=== PATIENT | female | born 1985 | race African-American/Black ===

== ENCOUNTER 2017-03-27 00:19 | Emergency (ER) | payer MEDICAID ==
[~2017-03-27] VITALS: Ht 154.9 cm; Wt 74.0 kg
[2017-03-27] MEDS ORDERED: TRAMADOL 50MG TABLET PO ONE (03:30)
[2017-03-27 03:39] LABS: BASOPHILS % 0.4 % (0.0-2.0); EOSINOPHILS % 3.8 % (0.0-5.0); HEMATOCRIT. 35.2 % (36.0-48.0); HEMOGLOBIN. 11.9 g/dL (12.0-16.0); LYMPHOCYTES % 41.2 % (20.0-50.0); MEAN CORPUSCULAR HEMOGLOBIN 30.6 pg (28.0-32.0); MEAN CORPUSCULAR VOLUME 90.3 fL (81.0-99.0); MONOCYTES % 7.5 % (2.0-8.0); NEUTROPHILS % 47.1 % (40.0-76.0); PLATELET 326 x1000/uL (130-400); RED CELL DISTRIBUTION WIDTH 13.6 % (11.6-14.6)
[2017-03-27 03:51] LABS: CARBON DIOXIDE 28 mEq/L (21-32); CHLORIDE 107 mEq/L (98-107)
[2017-03-27 03:54] LABS: HCG SCREEN NEGATIVE
[2017-03-27] MEDS ORDERED: ONDANSETRON HCL 4MG/2ML VIAL IV ONE (05:45)
[2017-03-27] MEDS ORDERED: MORPHINE SULFATE 4 MG/ML CPJ (NOT FOR IM USE) IV ONE (05:45)
[2017-03-27 06:44] VITALS: BP 122/64
[2017-03-27 08:00] LABS: CLARITY URINE CLEAR (CLEAR); COLOR URINE YELLOW (YELLOW); GLUCOSE URINE NEGATIVE (NEGATIVE); KETONES URINE TRACE (NEGATIVE); LEUKOCYTE ESTERASE URINE NEGATIVE (NEGATIVE); NITRITE URINE NEGATIVE (NEGATIVE); OCCULT BLOOD URINE NEGATIVE (NEGATIVE); PH URINE 6.5 (4.5-8.0); PROTEIN URINE NEGATIVE (NEGATIVE); SPECIFIC GRAVITY URINE 1.033 (1.005-1.030)
[2017-03-27] MEDS ORDERED: SODIUM CHLORIDE 0.9% 10ML VIAL ONE (10:56)
[2017-03-27] MEDS ORDERED: IOHEXOL-300 100 ML BOTTLE ONE (10:56)
== END 2017-03-27 06:54 | disposition home or self-care (01) ==
LOC: ER 00:19
DX: R19.00 Intra-abdominal and pelvic swelling, mass and lump, unspecified site (principal); R10.33 Periumbilical pain; Z98.890 Other specified postprocedural states
CPT/HCPCS: 36415; 74177; 80053; 81003; 84703; 85025; 96374; 96375; 99285; A4216; J2270; J2405; Q9967; Z7610

== ENCOUNTER 2017-06-11 06:51 | Emergency (ER) | payer MEDICAID ==
[~2017-06-11] VITALS: Ht 154.9 cm; Wt 74.0 kg
[2017-06-11] MEDS ORDERED: SODIUM CHLORIDE 0.9% 1,000 ML IV ONE (07:16)
[2017-06-11] MEDS ORDERED: MORPHINE SULFATE 4 MG/ML CPJ (NOT FOR IM USE) IV STA (07:16)
[2017-06-11] MEDS ORDERED: ONDANSETRON HCL 4MG/2ML VIAL IV STA (07:16)
[2017-06-11] MEDS ORDERED: DIATR MEGLU/DIATRIZOATE SOLN 30ML ONE (07:43)
[2017-06-11 07:49] LABS: BASOPHILS % 0.4 % (0.0-2.0); HEMATOCRIT. 36.2 % (36.0-48.0); HEMOGLOBIN. 12.3 g/dL (12.0-16.0); LYMPHOCYTES % 42.2 % (20.0-50.0); MEAN CORPUSCULAR VOLUME 91.5 fL (81.0-99.0); MEAN PLATELET VOLUME 7.8 fl (7.4-10.4); MONOCYTES % 8.9 % (2.0-8.0); NEUTROPHILS % 45.5 % (40.0-76.0); PLATELET 336 x1000/uL (130-400); RED BLOOD CELL COUNT 3.96 mill/uL (4.2-5.4); RED CELL DISTRIBUTION WIDTH 13.5 % (11.6-14.6)
[2017-06-11 08:04] LABS: GLUCOSE URINE NEGATIVE (NEGATIVE); KETONES URINE NEGATIVE (NEGATIVE); LEUKOCYTE ESTERASE URINE NEGATIVE (NEGATIVE); NITRITE URINE NEGATIVE (NEGATIVE); OCCULT BLOOD URINE 3+ (NEGATIVE); PROTEIN URINE NEGATIVE (NEGATIVE)
[2017-06-11 08:05] LABS: CARBON DIOXIDE 28 mEq/L (21-32); CHLORIDE 109 mEq/L (98-107)
[2017-06-11 08:05] LABS: CLARITY URINE CLEAR (CLEAR); COLOR URINE YELLOW (YELLOW)
[2017-06-11] MEDS ORDERED: IOHEXOL-300 100 ML BOTTLE ONE (09:47)
[2017-06-11] MEDS ORDERED: KETOROLAC 30MG/ML VIAL IV ONE (11:45)
[2017-06-11 12:01] VITALS: BP 124/84
== END 2017-06-11 12:02 | disposition home or self-care (01) ==
LOC: ER 07:34
DX: R19.09 Other intra-abdominal and pelvic swelling, mass and lump (principal); Z98.890 Other specified postprocedural states
CPT/HCPCS: 36415; 74177; 80053; 81001; 81025; 83690; 85025; 96361; 96374; 96375; 99285; J1885; J2270; J2405; J7030; Q9967; Z7610; Q9963

== ENCOUNTER 2018-05-28 21:41 | Emergency (ER) | payer MEDICAID ==
[~2018-05-28] VITALS: Ht 154.9 cm; Wt 73.0 kg
[2018-05-28] MEDS ORDERED: MORPHINE SULFATE 4 MG/ML CPJ (NOT FOR IM USE) IV STA (23:59)
[2018-05-28] MEDS ORDERED: SODIUM CHLORIDE 0.9% 1,000 ML IV ONE (23:59)
[2018-05-28] MEDS ORDERED: ONDANSETRON HCL 4MG/2ML INJ IV STA (23:59)
[2018-05-29 00:47] LABS: BASOPHILS % 0.4 % (0.0-2.0); EOSINOPHILS % 0.4 % (0.0-5.0); HEMATOCRIT. 37.4 % (36.0-48.0); HEMOGLOBIN. 12.5 g/dL (12.0-16.0); LYMPHOCYTES % 23.8 % (20.0-50.0); MEAN CORPUSCULAR HEMOGLOBIN 30.6 pg (28.0-32.0); MEAN CORPUSCULAR VOLUME 91.7 fL (81.0-99.0); MEAN PLATELET VOLUME 8.4 fl (7.4-10.4); MONOCYTES % 5.5 % (2.0-8.0); NEUTROPHILS % 69.9 % (40.0-76.0); PLATELET 330 x1000/uL (130-400); RED BLOOD CELL COUNT 4.07 mill/uL (4.2-5.4); RED CELL DISTRIBUTION WIDTH 13.3 % (11.6-14.6)
[2018-05-29 00:53] LABS: CHLORIDE 104 mEq/L (98-107)
[2018-05-29 00:55] LABS: CLARITY URINE CLEAR (CLEAR); COLOR URINE YELLOW (YELLOW); KETONES URINE NEGATIVE (NEGATIVE); LEUKOCYTE ESTERASE URINE NEGATIVE (NEGATIVE); NITRITE URINE NEGATIVE (NEGATIVE); OCCULT BLOOD URINE TRACE (NEGATIVE); PH URINE 6.5 (4.5-8.0); PROTEIN URINE NEGATIVE (NEGATIVE); UROBILINOGEN URINE 0.2 E.U./dL (0.2-1.0)
[2018-05-29] MEDS ORDERED: KETOROLAC 30MG/ML VIAL IV ONE (03:15)
[2018-05-29 04:33] VITALS: BP 121/73
== END 2018-05-29 04:54 | disposition home or self-care (01) ==
LOC: ER 21:41
DX: R10.9 Unspecified abdominal pain (principal); N94.6 Dysmenorrhea, unspecified; I63.9 Cerebral infarction, unspecified; Z98.890 Other specified postprocedural states
CPT/HCPCS: 36415; 74176; 80053; 81003; 81025; 83690; 85025; 96374; 96375; 96376; 99285; J1885; J2270; J2405; J7030

== ENCOUNTER 2018-10-07 18:58 | Emergency (ER) | payer MEDICAID ==
[~2018-10-07] VITALS: Ht 154.9 cm; Wt 74.0 kg
[2018-10-07] MEDS ORDERED: DIAZEPAM 2 MG TABLET PO ONE (21:00)
[2018-10-07 21:38] LABS: CLARITY URINE CLEAR (CLEAR); COLOR URINE DARK YELLOW (YELLOW); KETONES URINE TRACE (NEGATIVE); LEUKOCYTE ESTERASE URINE TRACE (NEGATIVE); NITRITE URINE NEGATIVE (NEGATIVE); OCCULT BLOOD URINE NEGATIVE (NEGATIVE); PH URINE 5.5 (4.5-8.0); PROTEIN URINE NEGATIVE (NEGATIVE); SPECIFIC GRAVITY URINE 1.028 (1.005-1.030)
[2018-10-07 22:00] VITALS: BP 115/86
[2018-10-07] MEDS ORDERED: MORPHINE SULFATE 10 MG/ML CPJ IM ONE (22:00)
== END 2018-10-07 22:02 | disposition home or self-care (01) ==
LOC: ER 21:46
DX: G89.29 Other chronic pain (principal); M54.6 Pain in thoracic spine; Z98.890 Other specified postprocedural states; Z87.11 Personal history of peptic ulcer disease
CPT/HCPCS: 72070; 81025; 99284